=== PATIENT | male | born 1995 | race Caucasian/White ===

== ENCOUNTER 2020-06-03 17:20 | Emergency (ER) | payer OTHER ==
[2020-06-03 17:28] VITALS: BP 109/63; PULSE 90; TEMP 97; BMI 22.3
[2020-06-03] MEDS ORDERED: LIDOCAINE HCL 1%, 10 MG/ML (20ML VIAL) ONE (17:42)
[2020-06-03] MEDS ORDERED: IBUPROFEN 600 MG TABLET (FP) PO ONE ×2 (18:45→18:49)
== END 2020-06-03 18:48 | disposition home or self-care (01) ==
LOC: JERFT 17:20
PROC: 0Y9630Z Drainage of Left Inguinal Region with Drainage Device, Percutaneous Approach (ICD-10-PCS; principal; 2020-06-03)
DX: L02.214 Cutaneous abscess of groin (principal)
CPT/HCPCS: 99284-25

== ENCOUNTER 2020-06-05 17:23 | Emergency (ER) | payer OTHER ==
[2020-06-05 17:47] VITALS: BP 105/75; PULSE 109; TEMP 97.4; BMI 22.3
== END 2020-06-05 18:23 | disposition home or self-care (01) ==
LOC: JERFT 17:23
DX: Z48.00 Encounter for change or removal of nonsurgical wound dressing (principal)
CPT/HCPCS: 99283-25